=== PATIENT | female | born 1975 | race Caucasian/White ===

== ENCOUNTER 2019-01-31 07:42 | Emergency (ER) | payer BC ==
--- OUTSIDE RECORDS SUMMARY | 2019-01-31 08:08 | XMS REPORT | Continuity of Care Document ---
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 Rheumatology Problems Active Problems Provider Date Hypothyroidism Orly Fine MD Onset: 02/23/2016 Generalized anxiety disorder Orly Fine MD Onset: 02/23/2016 Irregular menstruation, unspecified Orly Fine MD Onset: 02/23/2016 Raynaud's disease Orly Fine MD Onset: 05/25/2016 Hand joint pain Orly Fine MD Onset: 05/25/2016 Social History Type Date Description Comments Sex Unknown ETOH Use Denies alcohol use Tobacco Use Start: Unknown Patient has never smoked Smoking Status Reviewed: 06/02/18 Patient has never smoked Enjoy Exercising Enjoys Exercising Allergies, Adverse Reactions, Alerts Description No Known Drug Allergies Medications Active Medications SIG Qnty Indications Ordering Date Provider Levothyroxine Sodium 1 by mouth every 90tabs E03.9 Orly Fine, 2018 day 137mcg Tablets Bupropion HCL 2 by mouth every 180tabs F41.1 Orly Fine, 02/23/2016 75mg day Tablets Vitamin B-12 2 by mouth every Orly Fine, 02/23/2016 Natural day 500mcg Tablets Norethindrone take 1 tablet by 84tabs N92.6 Orly Fine, 0.35mg mouth daily for MD Tablets 28 days Digestive Enzymes 1 by mouth with Unknown each meal daily Capsules Plaquenil 1 by mouth once Unknown 200mg Tablets daily during the week and two tablets on weekend only Immunizations CPT Code Status Date Vaccine Lot # [id number] Refused 11/29/2017 Flu Vaccine NOS [id number] Refused 05/28/2017 Afluria Or Fluvirin Flu Vac Intramuscular 18953 Refused 05/25/2016 Tetanus And Diptheria Toxoids For Adult Use- preservative free Vital Signs Date Vital Result Comment 12/15/2018 4:14pm Weight 139.00 lb Heart Rate 72 /min BP Systolic 122 mmHg BP Diastolic 68 mmHg Respiratory Rate 16 /min Height 62 inches 5'2" O2 % BldC Oximetry 98 % Ra BMI (Body Mass Index) 25.4 kg/m2 06/02/2018 9:16am Weight 136.00 lb Heart Rate 78 /min BP Systolic 120 mmHg BP Diastolic 72 mmHg Respiratory Rate 18 /min Height 62 inches 5'2" O2 % BldC Oximetry 98 % Ra BMI (Body Mass Index) 24.9 kg/m2 Results Test Date Facility Test Result H/L Range Note CBC with Auto 12/08/2018 [facility] White Blood 8.4 K/uL Normal 3.1-10.7 1 Diff-fcmg (315)- - Count Red Blood Count 4.79 M/uL Normal 3.90-5.40 Hemoglobin 13.9 gm/dL Normal 11.6-15.8 Hematocrit 41.1 % Normal 36.0-46.1 Mean Cell Volume 85.8 fl Normal 80.9-99.0 Mean Corpuscular HGB 29.0 pg Normal 25.9-32.7 Mean Corpuscular HGB Conc 33.8 g/dL Normal 30.8-34.3 Platelet Count 360 K/uL Normal 155-360 Red Cell Distri Width SD 38.5 fl Normal 36-47 Red Cell Distri Width %CV 12.4 % Normal 11.7-14.4 Mean Platelet Volume 9.7 fl Normal 8.9-12.4 Neut% 66.6 % Normal 40.4-72.8 Lymph % 24.5 % Normal 20.0-42.0 [place]affee % 7.6 % Normal 4.3-13.2 Eo% 0.5 % Normal 0.0-6.6 Bas% 0.4 % Normal 0.0-1.1 Immature Grans 0.4 % Normal 0.0-5.0 NRBC % 0.0 /100WBC < 10/ 100 WBC Neut# 5.60 K/uL Normal 1.8-7.0 Lymph # 2.06 K/uL Normal 1.0-4.0 Chaffee # 0.64 K/uL Normal 0.3-0.9 Eos # 0.04 K/uL Normal 0.0-0.5 Baso # 0.03 K/uL Normal 0.0-0.1 Immature Grans Absolute 0.03 K/uL NRBC # 0.00 K/uL Comprehensive Metabolic 12/08/2018 [facility] Glucose 73 mg/dL Low 74-106 Panel (315)- - BUN 7 mg/dL Normal 7-18 Creatinine 0.8 mg/dL Normal 0.6-1.3 Glom Filtration Rate, Estimate >60 mL/min >60 If >60 mL/min >60 2 BUN/Creat 8.7 ratio Sodium 138 mmol/L Normal 136-145 Potassium 3.6 mmol/L Normal 3.5-5.1 Chloride 107 mmol/L Normal 98-107 Carbon Dioxide 26 mmol/L Normal 21-32 Anion Gap 5 mEq/L Low 8-16 Calcium 9.2 mg/dL Normal 8.5-10.1 Total Protein 7.5 g/dL Normal 6.4-8.2 Albumin 4.5 g/dL Normal 3.4-5.0 Globulin 3.0 g/dL Normal 1.9-4.3 Alb/Glob 1.5 ratio Bilirubin,Total 0.3 mg/dL Normal 0.2-1.0 Sgot/Ast 18 U/L Normal 15-37 SGPT/Alt 19 U/L Normal 12-78 Alkaline Phosphatase 70 U/L Normal 45-117 LDL Cholesterol 12/08/2018 [facility] Cholesterol 180 mg/ dL <200 3 Profile (315)- - Triglycerides 51 mg/dL <150 4 HDL Cholesterol 86 mg/dL >40 5 LDL-Cholesterol 84 mg/dL < 100 6 Laboratory test 12/08/2018 [facility] Thyroid Stim 4.24 uIU/mL High 0.30-4.20 finding (315)- - Hormone 1 E03.9 F41.1 2 Note: Persistent reduction for 3 months or more in an eGFR <60 mL/min/1.73 m2 defines CKD. Patients with eGFR values >/=60 mL/min/1.73 m2 may also have CKD if evidence of persistent proteinuria is present. The original MDRD equation for estimated GFR is not valid for patients less than 18 years of age. Additional information may be found at www.kdoqi.org. 3 Reference Guidelines*: Desirable: ........... < 200 mg/dL Borderline High: ..... 200-239 mg/dL High: ................ >= 240 mg/dL * The National Cholesterol Education Program (NCEP) 4 Reference Guidelines*: Normal: ............. < 150 mg/dL Borderline High: .... 150-199 mg/dL High: ............... 200-499 mg/dL Very High: .......... > 500 mg/dL * Source: National Cholesterol Education Program (NCEP) 5 Reference Guidelines*: Low HDL: ..... < 40 mg/dL Normal: ..... 40-60 mg/dL Desirable: ... > 60 mg/dL *The National Cholesterol Education Program(NCEP) 6 Reference Guidelines*: Optimal:........... <100 mg/dL Near Optimal....... 100-129 mg/dL Borderline High.... 130-159 mg/dL High............... 160-189 mg/dL Very High.......... >=190 mg/dL * Source: National Cholesterol Education Program (NCEP) Procedures Date Code Description Status 06/30/2018 [id number] Mammogram Completed Medical Devices Description No Information Available Encounters Description No Information Available Assessments Date Code Description Provider 12/15/2018 I73.00 Raynaud's syndrome without gangrene Orly Fine MD 12/15/2018 M25.549 Pain in joints of unspecified hand Orly Fine MD 12/15/2018 F41.1 Generalized anxiety disorder Orly Fine MD 12/15/2018 E03.9 Hypothyroidism, unspecified Orly Fine MD 12/15/2018 N92.6 Irregular menstruation, unspecified Orly Fine MD 12/15/2018 Z68.25 Body mass index (BMI) 25.0-25.9, adult Orly Fine MD Plan of Treatment Future Appointment(s):01/26/2019 8:20 am - Schedule, Laboratory at [facility]2019 8:20 am - Schedule, Laboratory at [facility]06/08/2019 8:15 am - Orly Fine MD at [facility]12/15/2018 - Orly Fine MDI73.00 Raynaud's syndrome without gangreneComments:She will carry gloves for this. Followed with Dr. Morales.Follow up:May as scheduled for [facility] - check labs prior TSH in 6 months.M25.549 Pain in joints of unspecified handComments:Dr. Morales is following this.F41.1 Generalized anxiety disorderComments:Anxiety is well controlled with the use of Bupropion. Continue current medication.E03.9 Hypothyroidism, unspecifiedNew Medication:Levothyroxine Sodium 137 mcg - 1 by mouth every dayNew Labs:TSH, Scheduled: 01/26/19TSH, Scheduled: 06/03/19Comments :Her TSH is slightly elevated at 4.4. We will adjust the dose of levothyroxine and check tsh in 6 bkhhvS84.6 Irregular menstruation, unspecifiedComments:This is controlled with the use of Norethindrone. Continue current medication.Z68.25 Body mass index (BMI) 25.0-25.9, adultComments:You are in your normal body weight range. the goal BMI is between 18.5 and 25 for people under age65 Functional Status Functional Condition Comment Date Status Negative for GLASSES Inactive Mental Status Description No Information Available Referrals Description No Information Available
[2019-01-31 08:11] VITALS: BP 117/86
--- NOTE | 2019-01-31 08:28 | UC ---
Cardiac HPI - HPI Summary HPI Summary: Pt presents with c/o sudden onset of "racing heart" that began 3 nights ago. Pt states that she a has made significant changes in her diet and following a low carb diet. She also reports that last week she experienced a significant amount of stress at work. Additionally, she reports intermittent "tingling and numbness on left side facial cheek" that resolves in seconds or minutes. she denies head ach eor any unilateral weakness. Denies change of vision or ability to swallow talk or smell. - History of Current Complaint Chief Complaint: UCGeneralIllness Stated Complaint: RACING PULSE Time Seen by Provider: 01/31/19 07:58 Hx Obtained From: Patient Hx Last Menstrual Period: 01/20/19 Onset/Duration: Sudden Onset, Lasting Minutes, Still Present Timing: Intermittent Episodes Lasting: Initial Severity: Mild Current Severity: None Pain Intensity: 0 Chest Pain Location: Mid Sternal Character: Irregular, Fluttering, Tightness Aggravating Factor(s): Nothing Alleviating Factor(s): Nothing Associated Signs & Symptoms: Positive: Dizziness, Palpitations - Risk Factors Pulmonary Embolism Risk Factors: Negative Cardiac Risk Factors: Negative Atrial Fibrillation: Negative TAD Risk Factors: Negative - Allergy/Home Medications Allergies/Adverse Reactions: Allergies Allergy/AdvReac Type Severity Reaction Status Date / Time seasonal Allergy Congestion Uncoded 01/31/19 07:46 Home Medications: Home Medications Cataplex B 4 cap PO TID 01/31/19 [History] Drenamin 2 cap PO TID 01/31/19 [History] Enzycore 1 cap PO TID 01/31/19 [History] Gut Pat Complex 1 tab PO DAILY 01/31/19 [History] Hydroxychloroquine TAB* [Plaquenil TAB*] 200 mg PO DAILY 01/31/19 [History Confirmed 01/31/19] Levothyroxine TAB* [Synthroid TAB*] 137 mcg PO DAILY 01/31/19 [History Confirmed 01/31/19] Norethindrone 0.35 mg PO DAILY 01/31/19 [History Confirmed 01/31/19] Prosynbiotic 1 cap PO TID 01/31/19 [History] PMH/Surg Hx/FS Hx/Imm Hx Previously Healthy: Yes Cardiovascular History: Other - pt has fmh of cva and RI: father at 44 - Surgical History Surgical History: None - Family History Known Family History: Positive: Cardiac Disease - Social History Occupation: Employed Full-time Lives: With Family Alcohol Use: None Substance Use Type: None Smoking Status (MU): Never Smoked Tobacco Have You Smoked in the Last Year: No - Immunization History Most Recent Tetanus Shot: 2011 Vaccination Up to Date: Yes Review of Systems All Other Systems Reviewed And Are Negative: Yes Constitutional: Positive: Negative Skin: Positive: Negative Eyes: Positive: Negative ENT: Positive: Negative Respiratory: Positive: Negative Cardiovascular: Positive: Palpitations Gastrointestinal: Positive: Negative Genitourinary: Positive: Negative Motor: Positive: Negative Neurovascular: Positive: Negative Musculoskeletal: Positive: Negative Neurological: Positive: Negative Psychological: Positive: Negative Is Patient Immunocompromised?: No Physical Exam Triage Information Reviewed: Yes Appearance: Well-Appearing Vital Signs: Initial Vital Signs Temp 98.2 F 01/31/19 07:55 Pulse 84 01/31/19 07:55 Resp 15 01/31/19 07:55 BP 128/77 01/31/19 07:55 Pulse Ox 100 01/31/19 07:55 Vital Signs Reviewed: Yes Eye Exam: Normal ENT Exam: Normal Dental Exam: Normal Neck exam: Normal Respiratory Exam: Normal Cardiovascular Exam: Normal Cardiovascular: Positive: RRR, No Murmur Musculoskeletal Exam: Normal Neurological Exam: Normal Psychological Exam: Normal Skin Exam: Normal - Assessment/Plan Course Of Treatment: I discussed with the pt the need to make sure pt is remaining well hydrated and to make sure getting proper nutritional intake with recent changes in diet. Pt verbalized understanding and agree toplan of care. I also discussed wiht pt the need to seek care at ER if symptoms worsen and to f/u with PCP and product design specialist. - Differential Diagnoses - Chest Pain Differential Diagnosis/HQI/PQRI: Acute RI, Pulmonary Embolism - Differential Diagnoses - Hypertension Differential Diagnosis/HQI PQRI: Myocardial Infarction - Differential Diagnoses - Palpitations Differential Diagnosis/HQI/PQRI: AV Block, Coronary Artery Disease, Hypokalemia - Clinical Impression Provider Diagnosis: History of palpitations Discharge ED - Sign-Out/Discharge Documenting (check all that apply): Patient Departure All imaging exams completed and their final reports reviewed: No Studies - Discharge Plan Condition: Stable Disposition: HOME Patient Education Materials: Heart Palpitations (ED) Referrals: Bailee Henderson NP [Nurse Practitioner] - As Soon As Possible Orly Fine MD [Primary Care Provider] - As Soon As Possible Sirena BLANCO,Mitch Young [Medical Doctor] - As Soon As Possible Ronda Cr MD [Medical Doctor] - As Soon As Possible Additional Instructions: Please follow up with your PCP as soon as possible. If your symptoms worsen please seek care immediately by either calling 911 or going directly to the closest emergency room. - Billing Disposition and Condition Condition: STABLE Disposition: Home
== END 2019-01-31 08:37 | disposition home or self-care (01) ==
LOC: UCCORT 07:42
DX: R00.2 Palpitations (principal); R42 Dizziness and giddiness; R20.0 Anesthesia of skin; Z91.09 Other allergy status, other than to drugs and biological substances
CPT/HCPCS: 93005; 99201; G0463